=== PATIENT | female | born 1980 | race Caucasian/White ===

== ENCOUNTER 2017-06-26 08:56 | Inpatient (IN) | payer BC ==
[2017-06-26] MEDS ORDERED: Buffered Lidocaine 0.9% SYRIN* 5 ML/SYR SYRINGE ONE (10:42)
[2017-06-26] MEDS ORDERED: Famotidine IV* 10 MG/ML 2 ML (20 mg) IV ONE (11:01)
[2017-06-26 12:05] LABS: ABS Basophils 0 10^3/ul (0-0.2); ABS Eosinophils 0.1 10^3/ul (0-0.6); ABS Lymphocytes 2.1 10^3/ul (1.0-4.8); ABS Monocytes 0.5 10^3/ul (0-0.8); ABS Neutrophils 10.4 10^3/ul (1.5-7.7); ABS Nucleated RBC 0 10^3/ul; Eosinophil % 0.5 % (0-6); Hematocrit 36 % (35-47); Hemoglobin 12.2 g/dl (12.0-16.0); Lymphocyte % 16.2 % (25-47); Mean Corpuscular HGB Conc 34 g/dl (31-36); Mean Corpuscular Hemoglobin 31 pg (27-31); Mean Corpuscular Volume 91 fL (80-97); Mean Platelet Volume 10 um3 (7.4-10.4); Nucleated Red Blood Cells % 0; Platelet Count 176 10^3/ul (150-450); Red Blood Count 3.92 10^6/ul (4.0-5.4); Red Cell Distribution Width 13 % (10.5-15); White Blood Count 13.1 10^3/ul (3.5-10.8)
[2017-06-26] MEDS ORDERED: ceFOXitin 2 GM IVPREMIX* 2 GM/50 ML BAG ONE (12:16)
[2017-06-26] MEDS ORDERED: KETAMINE HCL* 50 MG/ML 10 ML VIAL ONE (14:09)
[2017-06-26] MEDS ORDERED: Morphine PF AMP (0.5MG/ML)* 5 MG/10 ML AMP ONE (14:09)
[2017-06-26] MEDS ORDERED: Midazolam* 1 MG/ML 10 ML VIAL (10 MG) ONE (14:09)
[2017-06-26] MEDS ORDERED: fentaNYL* 50 MCG/ML 2 ML VIAL (100 MCG VIAL) ONE (14:09)
[2017-06-26] MEDS ORDERED: DiMENhydriNATE IV* 50 MG/ML VIAL IV PUSH PRN (14:52)
[2017-06-26] MEDS ORDERED: Scopolamine PATCH Remove* 1 NOTE MISC PATCH OFF PRN (14:52)
[2017-06-26] MEDS ORDERED: Nalbuphine* 20 MG/ML 1 ML VIAL IV PRN (14:52)
[2017-06-26] MEDS ORDERED: Naloxone* 2 MG in NS 0.9% 250 ML* 250 ML IV PRN (14:52)
[2017-06-26] MEDS ORDERED: diPHENhydraMINE IV* 50 MG/ML 1 ml VIAL (BENADRYL) IV PRN (14:52)
[2017-06-26] MEDS ORDERED: oxyCODONE/Acetamin 5/325 MG* TAB PO PRN ×2 (14:52→16:20)
[2017-06-26] MEDS ORDERED: PROCHLORPERAZINE INJ 5 MG/ML 2 ML VIAL IV PRN (14:52)
[2017-06-26] MEDS ORDERED: Ketorolac INJ* 30 MG/ML 1 ML VIAL IV PRN (14:52)
[2017-06-26] MEDS ORDERED: Naloxone* 0.4 MG/ML 1 ML VIAL IV PRN ×2 (14:52→14:54)
[2017-06-26] MEDS ORDERED: Ondansetron INJ* 2 MG/ML VIAL IV PRN (14:52)
[2017-06-26] MEDS ORDERED: fentaNYL* 50 MCG/ML 2 ML VIAL (100 MCG VIAL) IV PRN (14:54)
[2017-06-26] MEDS ORDERED: Scopolamine 1.5 mg* PATCH ONE (15:29)
[2017-06-26] MEDS ORDERED: EPHEDrine (Pressors)* 50 MG/ML VIAL ONE (15:29)
[2017-06-26] MEDS ORDERED: Ketorolac INJ* 30 MG/ML 1 ML VIAL ONE (15:29)
[2017-06-26] MEDS ORDERED: Ondansetron INJ* 2 MG/ML VIAL ONE (15:29)
[2017-06-26] MEDS ORDERED: Dexamethasone IV* 4 MG/ML 1 ML (4 MG) ONE (15:29)
[2017-06-26] MEDS ORDERED: OXYTOCIN* 10 UNITS/ML 1 ML VIAL ONE (15:29)
[2017-06-26] MEDS ORDERED: Dibucaine 1% 28.35 GM TUBE PR PRN (16:20)
[2017-06-26] MEDS ORDERED: Witch Hazel PAD* JAR TOPICAL PRN (16:20)
[2017-06-26] MEDS ORDERED: Glycerin ADULT SUPP PR PRN (16:20)
[2017-06-26] MEDS ORDERED: Acetaminophen TAB* 325 MG PO PRN (16:20)
[2017-06-26] MEDS ORDERED: Oxytocin in LR* 20 UNITS/1,000 ML BAG IVPB SCH (17:00)
[2017-06-26] MEDS: Simethicone TAB* 80 MG TAB.CHEW PO SCH ×2 (17:34→21:00)
[2017-06-26] MEDS: Docusate CAP* 100 MG PO SCH (21:00)
[2017-06-27 05:52] LABS: ABS Basophils 0.1 10^3/ul (0-0.2); ABS Eosinophils 0 10^3/ul (0-0.6); ABS Lymphocytes 2.7 10^3/ul (1.0-4.8); ABS Neutrophils 13.8 10^3/ul (1.5-7.7); ABS Nucleated RBC 0 10^3/ul; Eosinophil % 0 % (0-6); Hematocrit 33 % (35-47); Hemoglobin 11.5 g/dl (12.0-16.0); Lymphocyte % 15.3 % (25-47); Mean Corpuscular HGB Conc 35 g/dl (31-36); Mean Corpuscular Hemoglobin 32 pg (27-31); Mean Corpuscular Volume 92 fL (80-97); Mean Platelet Volume 10 um3 (7.4-10.4); Nucleated Red Blood Cells % 0; Platelet Count 148 10^3/ul (150-450); Red Blood Count 3.64 10^6/ul (4.0-5.4); Red Cell Distribution Width 13 % (10.5-15); White Blood Count 17.6 10^3/ul (3.5-10.8)
[2017-06-27] MEDS: Ibuprofen TAB* 600 MG PO PRN ×3 (08:12→22:09)
[2017-06-27] MEDS: Simethicone TAB* 80 MG TAB.CHEW PO SCH ×4 (08:13→22:09)
[2017-06-27] MEDS: Docusate CAP* 100 MG PO SCH ×3 (08:13→22:09)
[2017-06-27] MEDS ORDERED: Ferrous Gluconate TAB* 324 MG TAB PO SCH (09:00)
[2017-06-27] MEDS ORDERED: PRENATAL DHA PO SCH (09:00)
[2017-06-27] MEDS ORDERED: DHA PO SCH (09:00)
[2017-06-27] MEDS: oxyCODONE/Acetamin 5/325 MG* TAB PO PRN ×2 (14:46→19:32)
--- NOTE | 2017-06-27 15:25 | OP ---
DATE OF OPERATION: 06/26/17 - ROOM #[id number]-105 DATE OF : 80 SURGEON: Haily Altman MD. LOAD OUT WORKER: Meaghan Reyes CNM. ANESTHESIOLOGIST: Dr. Max. ANESTHESIA: Spinal. PRE-OP DIAGNOSES: Intrauterine at 39 and 5/7 weeks, premature rupture of membranes, desires repeat section. POST-OP DIAGNOSES: Intrauterine at 39 and 5/7 weeks, premature rupture of membranes, desires repeat section, delivered. OPERATIVE PROCEDURE: Repeat low transverse section. ESTIMATED BLOOD LOSS: 600 cc. URINE OUTPUT: 100 cc of clear yellow urine. FLUIDS: 2300 cc of crystalloid. FINDINGS: Revealed a vertex female infant with Apgars 9 at one and 9 at five minutes. Weight was 7 pounds 5 ounces. No nuchal cord. No meconium. Normal appearing placenta. Three-vessel cord intact and manually extracted. Normal appearing ovaries and tubes bilaterally. Normal uterine cavity without evidence of retained placental tissue or membranes. COMPLICATIONS: None apparent. DISPOSITION: Stable to recovery room. DESCRIPTION OF PROCEDURE: The patient was placed in dorsal lithotomy position. The abdomen was prepped and draped in a sterile standard fashion. The patient was identified with universal protocol for correct procedure, position, and patient. Incision was made underneath the inferior aspect of her prior keloid scar and the superior incision was made above the keloid and then the keloid was excised using a scalpel. The fascia was scored in the midline and then extended laterally and superiorly using curved Vincent scissors. The fascia was both superiorly and inferiorly with blunt and sharp dissection, and the peritoneum was then entered bluntly. The peritoneal incision was extended bluntly. Bladder blade was inserted. Lower uterine segment was identified, tended up with an Allis. An incision was made with scalpel, which was carried down through the membranes. Clear fluid was noted. The incision was extended laterally and superiorly using bandage scissors. The infant was delivered direct OA. No nuchal cord was appreciated. Anterior, then posterior shoulder delivered. Cord was allowed to pulse for greater than 30 seconds and was then clamped and cut, and the infant was handed off to awaiting shoe planner. Appropriate cord blood was then obtained. The placenta was then manually extracted and noted to be intact three-vessel cord. The uterus was exteriorized, wrapped with warm moist laparotomy sponge. The cavity was explored and noted to be free of any placenta membranes or tissue. The uterine incision itself was reapproximated using 0 Vicryl x2 in a running and then imbricated fashion. A [id number] suture was then placed at the right corner for complete hemostasis. The uterus was return intra-abdominally. Colic gutters were lavaged. Hemostasis was assured. The hysterotomy site was visualized and noted to be hemostatic. There was two areas of bladder pillars that were ligated using 3-0 Vicryl x2 in interrupted fashion for complete hemostasis. This was near the dissection plane where the bladder was attached to the lower uterine segment of the uterus. Peritoneum was then reapproximated using 3-0 Vicryl in a running fashion. Subfascial area was lavaged. Hemostasis assured and the fascia was then reapproximated using 0 Vicryl x2 in a running fashion. Subcu was lavaged. Hemostasis assured and the skin was then reapproximated using a 4-0 Monocryl in subcuticular fashion. Mastisol and Steris were applied. All sponge, needle, instrument, and blade counts were correct throughout the case. Patient tolerated the procedure well and went to the recovery room in stable condition. [id number]/[facility] #: [id number] [facility] MEDICAL CENTERPatrice
--- NOTE | 2017-06-27 16:07 | PN ---
Progress Note - Progress Note Date of Service: 06/27/17 Note: Anesthesia duramorph follow up. good pain control, -NV, -ORR. neuro ok, VSS, s/p CS continue oral meds
[2017-06-28] MEDS: oxyCODONE/Acetamin 5/325 MG* TAB PO PRN ×2 (00:20→04:51)
[2017-06-28] MEDS: Ibuprofen TAB* 600 MG PO PRN ×2 (04:51→11:21)
[2017-06-28] MEDS: Simethicone TAB* 80 MG TAB.CHEW PO SCH (08:28)
[2017-06-28] MEDS: Docusate CAP* 100 MG PO SCH (08:28)
[2017-06-28 08:29] VITALS: BP 108/68
== END 2017-06-28 12:10 | disposition home or self-care (01) | DRG 540 ==
LOC: MCHOBOUT 08:56 → MCHOB 10:24
PROVIDERS: ADMIT Obstetrics & Gynecology; ATTEND Obstetrics & Gynecology
PROC: 4A1HXCZ Monitoring of Products of Conception, Cardiac Rate, External Approach (ICD-10-PCS; 2017-06-26)
PROC: 10D00Z1 Extraction of Products of Conception, Low, Open Approach (ICD-10-PCS; principal; 2017-06-26 14:24)
DX: O34.211 Maternal care for low transverse scar from previous cesarean delivery (principal); O42.02 Full-term premature rupture of membranes, onset of labor within 24 hours of rupture; Z3A.39 39 weeks gestation of pregnancy; Z37.0 Single live birth
CPT/HCPCS: 36415; 84112; 85025; 86850; 86900; 86901; A9270-GY; J0694; J1100; J1885; J2250; J2405; J2590; J3010

== ENCOUNTER 2020-01-05 05:57 | Inpatient (IN) ==
[~2020-01-05 05:57] MED LIST: EPHEDrine (Pressors) 50 MG/ML VIAL IV PUSH SCH; MORPHINE IV SCH; Oxytocin 10 UNITS/ML 1 ML VIAL IV SCH; Phenylephrine 40 mcg/mL 10mL (400mcg) SYRINGE IV SCH
[2020-01-05] MEDS ORDERED: ceFOXitin 2 GM IVPREMIX 2 GM/50 ML BAG IVPB ONE (06:30)
[2020-01-05] MEDS ORDERED: Sodium Citrate/Citric Acid LIQ 15 ML UDC ONE (06:50)
[2020-01-05] MEDS ORDERED: Sodium Citrate/Citric Acid LIQ 15 ML UDC PO ONE (07:03)
[2020-01-05 08:03] LABS: Urine Benzodiazepine Screen None Detected (None Detect); Urine Opiates Screen None Detected (None Detect)
[2020-01-05] MEDS ORDERED: Oxytocin in LR 20 UNITS/1,000 ML BAG IVPB SCH (09:00)
[2020-01-05] MEDS ORDERED: Acetaminophen IV 1 GM/100ML 1,000 MG/100 ML VIAL IVPB ONE (09:05)
[2020-01-05] MEDS ORDERED: Ondansetron 4 mg VIAL 2 MG/ML 2 ml VIAL IV PRN (09:05)
[2020-01-05] MEDS ORDERED: Naloxone 0.4 mg VIAL 0.4 mg/ml 1 ml VIAL IV PRN ×2 (09:05)
[2020-01-05] MEDS ORDERED: Nalbuphine 10 MG/ML 1 ML VIAL IV PRN (11:58)
[2020-01-05] MEDS ORDERED: diPHENhydraMINE IV 50 MG/ML 1 ml VIAL (BENADRYL) IV PRN ×2 (11:58→19:21)
[2020-01-05] MEDS ORDERED: Glycerin ADULT 2.4 gm SUPP PR PRN (14:26)
[2020-01-05] MEDS ORDERED: Lactated Ringers 1000 ml BAG 1,000 ML IV SCH (15:00)
[2020-01-06 09:07] LABS: ABS Basophils 0.1 10^3/ul (0-0.2); ABS Eosinophils 0.2 10^3/ul (0-0.6); ABS Lymphocytes 1.9 10^3/ul (1.0-4.8); ABS Monocytes 0.5 10^3/ul (0-0.8); ABS Neutrophils 8.9 10^3/ul (1.5-7.7); Eosinophil % 1.6 %; Hematocrit 32 % (35-47); Hemoglobin 11.2 g/dL (12.0-16.0); Lymphocyte % 16.2 %; Mean Corpuscular HGB Conc 35 g/dL (31-36); Mean Corpuscular Hemoglobin 33 pg (27-31); Mean Corpuscular Volume 94 fL (80-97); Mean Platelet Volume 9.6 fL (7.4-10.4); Platelet Count 137 10^3/uL (150-450); Red Blood Count 3.41 10^6 /uL (3.70-4.87); Red Cell Distribution Width 13 % (10-15); White Blood Count 11.4 10^3/uL (3.5-10.8)
[2020-01-07 08:13] VITALS: BP 99/60
== END 2020-01-07 17:48 | disposition home or self-care (01) | DRG 540 ==
LOC: MCHOB 05:57
PROVIDERS: ADMIT Obstetrics & Gynecology; ATTEND Obstetrics & Gynecology